=== PATIENT | male | born 1980 | race African-American/Black ===

== ENCOUNTER 2018-02-05 00:20 | Emergency (ER) | payer SELFPAY ==
[2018-02-05] MEDS ORDERED: ONDANSETRON DISINTEGRATING 4 MG TAB ONE (00:26)
--- NOTE | 2018-02-05 00:26 | EDPHY ---
H & P Time Seen by Provider: 02/05/18 00:25 HPI/ROS: HPI CHIEF COMPLAINT: Alcohol Intoxication HISTORY OF PRESENT ILLNESS: Patient 29-year-old male, brought into the emergency room by EMS with police for alcohol intoxication. Patient found sleeping on a sidewalk no trauma reported. He admits to large amount of alcohol this evening. He arrives with no significant complaints. Denies any chest pain or shortness of breath. States he drank a large amount of liquor today. Past Medical History: Denies medical history Past Surgical History: Denies surgical history Social History: Daily alcohol use homeless. Family History: Noncontributory ROS REVIEW OF SYSTEMS: A comprehensive 10 point review of systems is otherwise negative aside from elements mentioned in the history of present illness. Exam Constitutional Intoxicated, triage nursing summary reviewed, vital signs reviewed, Sleepy, smells of alcohol Eyes normal conjunctivae and sclera, horizontal beating nystagmus consistent acute alcohol intoxication, otherwise pupils equal and react to light HENT normal inspection, atraumatic, moist mucus membranes, no epistaxis, neck supple/ no meningismus, no raccoon eyes. Respiratory clear to auscultation bilaterally, normal breath sounds, no respiratory distress, no wheezing. Cardiovascular rate normal, regular rhythm, no murmur, no edema, distal pulses normal. Gastrointestinal soft, non-tender, no rebound, no guarding, normal bowel sounds, no distension, no pulsatile mass. Genitourinary no CVA tenderness. Musculoskeletal no midline vertebral tenderness, full range of motion, no calf swelling, no tenderness of extremities, no meningismus, good pulses, neurovascularly intact. Skin pink, warm, & dry, no rash, skin atraumatic. Neurologic sleepy, intoxicated with alcohol,, alert and oriented x 3, AAOx3, moves all 4 extremities equally, motor intact, sensory intact, CN II-XII intact , , normal vision, normal speech. Psychiatric normal mood/affect. Heme/Lymph/Immune no lymphadenopathy. Differential Diagnosis: Includes but is not limited to in a particular order acute alcohol intoxication, alcohol abuse, dehydration, electrolyte abnormality , nausea vomiting from acute alcohol intoxication Medical Decision Making: Plan for this patient patient is very sleepy. Will allow him to rest here. Once more sober and more awake he can be safely discharged from the emergency room. Re-evaluation: [id number]: Patient ambulated well throughout the emergency room without any difficulty. He is clinically sober. Patient requesting to go to detox. Will appropriately dispositioned detox. No focal complaints. Source: Patient, Police, EMS Constitutional: Initial Vital Signs Temperature (C) 36.6 C 02/05/18 00:32 Heart Rate 74 02/05/18 00:32 Respiratory Rate 16 02/05/18 00:32 Blood Pressure 112/65 02/05/18 00:32 O2 Sat (%) 96 02/05/18 00:32 O2 Delivery Mode Room Air Allergies/Adverse Reactions: No Known Allergies Allergy (Unverified 02/05/18 00:37) Home Medications: Medication Instructions Recorded NK [No Known Home Meds] 02/05/18 Medical Decision Making - Data Points Medications Given: Discontinued Medications Ondansetron HCl (Zofran Odt) 4 mg PO EDNOW ONE Stop: 02/05/18 00:37 Last Admin: 02/05/18 00:37 Dose: 4 mg Departure - Departure Disposition: Home, Routine, Self-Care Clinical Impression: Alcoholic intoxication Qualifiers: Complication of substance-induced condition: uncomplicated Qualified Code(s): F10.920 - Alcohol use, unspecified with intoxication, uncomplicated Condition: Good Instructions: Alcohol Intoxication (ED), Abuse of Alcohol (ED) Referrals: Patient,NotPresent [Primary Care Provider] - As per Instructions
[2018-02-05] MEDS ORDERED: ONDANSETRON 4 MG/2 ML VIAL IVP ONE (00:32)
[2018-02-05] MEDS ORDERED: ONDANSETRON DISINTEGRATING 4 MG TAB PO ONE (00:36)
[2018-02-05 03:15] VITALS: BP 131/77
== END 2018-02-05 03:14 | disposition home or self-care (01) ==
LOC: EDUNIT#
DX: F10.920 Alcohol use, unspecified with intoxication, uncomplicated (principal)